=== PATIENT | female | born 2000 | race Hispanic/Latino ===

== ENCOUNTER 2022-07-25 21:35 | Emergency (ER) | payer MEDICAID ==
[~2022-07-25] VITALS: Ht 149.9 cm; Wt 60.8 kg
[2022-07-25 22:04] LABS: BASOPHILS % (AUTO) 0.2 % (0.0-5.0); EOSINOPHILS % (AUTO) 3.6 % (0.0-8.0); HEMATOCRIT 29.3 % (36-48); LYMPHOCYTES % (AUTO) 33.8 % (21.0-51.0); MEAN CORPUSCULAR HEMOGLOBIN 28.5 pg (27.0-33.0); MEAN CORPUSCULAR HGB CONC 32.1 g/dL (32.0-36.0); MEAN CORPUSCULAR VOLUME 88.8 fL (79-99); NEUTROPHILS % (AUTO) 54.9 % (40.0-77.0); PLATELET COUNT (AUTO) 244 K/uL (130-400); RED CELL DISTRIBUTION WIDTH 14.9 % (11.0-15.5); WHITE BLOOD COUNT (AUTO) 6.3 K/uL (4.8-10.8)
[2022-07-25 22:14] LABS: INR 0.93 (0.85-1.15); PROTHROMBIN TIME 9.1 SEC (9.6-11.6)
[2022-07-25 22:15] LABS: PARTIAL THROMBOPLASTIN TIME 25.3 SEC (26.3-35.5)
[2022-07-25] MEDS ORDERED: ALBU90AE2 IH (22:26)
[2022-07-25] MEDS ORDERED: NIRM1TAB PO (22:26)
[2022-07-25] MEDS ORDERED: IBUP-1493 PO (22:26)
[2022-07-25] MEDS ORDERED: IPRATROPIUM/ALBUTEROL SULFATE 3 ML SOLUTION IH ONE (22:30)
[2022-07-25 22:37] LABS: ALBUMIN 2.4 g/dL (3.5-5.0); CREATININE 0.7 mg/dL (0.5-1.5); POTASSIUM 3.5 mmol/L (3.5-5.1); TOTAL PROTEIN, SERUM 6.4 g/dL (6.0-8.3)
[2022-07-25] MEDS ORDERED: IOHEXOL-350 75 ML VIAL IV ONE (22:45)
[2022-07-26 00:33] VITALS: BP 132/74
== END 2022-07-26 00:37 | disposition home or self-care (01) ==
LOC: EDH 21:35
DX: U07.1 COVID-19 (principal); Z79.51 Long term (current) use of inhaled steroids
CPT/HCPCS: 99284; 71270; 87635; 84484; 80053; 85025; 85378; 85610; 85730; 86850; 86900; 86901; 87040 ×2; 87804 ×2; 83605; 36415; 93005; 94640; C9803; Q9967